=== PATIENT | female | born 2000 | race Caucasian/White ===

== ENCOUNTER 2021-02-22 04:06 | Emergency (ER) | payer OTHER ==
[~2021-02-22] VITALS: Ht 165.1 cm; Wt 53.1 kg
[2021-02-22] MEDS ORDERED: PRENATALES (04:16)
== END 2021-02-22 11:54 | disposition home or self-care (01) ==
LOC: ER 04:06
DX: O98.512 Other viral diseases complicating pregnancy, second trimester (principal); B34.9 Viral infection, unspecified; R21 Rash and other nonspecific skin eruption; Z34.02 Encounter for supervision of normal first pregnancy, second trimester